=== PATIENT | female | born 1945 | race Caucasian/White ===

== ENCOUNTER 2016-11-30 13:54 | Inpatient (IN) | payer OTHER ==
--- NOTE | ~2016-11-30 | HP ---
History And Physical [place] [address] [facility] [place]. [address] NAME: ERNESTINE CHANCE : 43 STATUS : ADM IN [facility]#: [id number] AGE: 71 ADM/REG DATE : 11/30/16 MR#: [id number] REPORT SERV DATE: 11/30/16 DICTATED BY: EZEQUIEL JAIMES DATE: 11/30/16 REPORT STATUS : Draft TRANSCRIBED BY: MODL DATE: 11/30/16 DATE OF ADMISSION: 11/30/2016 CHIEF COMPLAINT: Diverticulitis. HISTORY OF PRESENT ILLNESS: The patient is a 71-year-old female, she has a past medical history of hypertension, hyperlipidemia, diabetes, and postmenopausal hormone replacement. She presents today as a referral from her cloth bleaching range tender. The patient states she initially started feeling better on 11/08. She was scheduled for a colonoscopy at that time; however, during the prep, she had a lot of diarrhea, abdominal pain, bloating, and cannot adequately prep. She made an appointment with her cloth bleaching range tender at that time. The colonoscopy was postponed, but she was sent for a CT. After the patient had left, she had a tentative diagnosis of diverticulitis and was placed on Cipro and Flagyl p.o. She did an outpatient CT at [facility], there was a question of a possible early abscess and contained perforation on that scan. The patient also had lab and she had a normal BMP, and she had a white count of 8. It was felt she could be managed conservatively, so she continued her home antibiotics. Over the proceeding 48 hours, the patient had some recurrent nausea. She has had no documented fever. She had continuation of her pain, not necessarily worse, it was concerning that she might be getting worse despite treatment so with her CT findings she was asked to present here for admission and evaluation. Currently, she is not in any distress. Otherwise, she is without complaints. PAST MEDICAL HISTORY: As covered above. PAST SURGICAL HISTORY: She had cholecystectomy, partial hysterectomy, and a bladder tack. CURRENT MEDICATIONS: Her home medicine list is pending. ALLERGIES: SHE REPORTS NO KNOWN DRUG ALLERGIES. FAMILY HISTORY: Father had diabetes and possibly CHF. Mother had emphysema and CHF. SOCIAL HISTORY: She smokes approximately 3 cigarettes a day. No EtOH. REVIEW OF SYSTEMS: HEENT: No headache or dizziness. CARDIOVASCULAR: No chest pain or palpitations. PULMONARY: No cough or shortness of breath. GI: She had nausea and dry heaves. Today, she had 2 loose bowel movements, nothing reported as bloody. She is having left lower and very lower and upper pelvic pain, it was somewhat worse with defecation today. No swelling or edema. Otherwise, her 14-point review of systems is negative. PHYSICAL EXAMINATION: VITAL SIGNS: BP 144/64, temperature 98.6, pulse 90, respirations 20, sat 96%. GENERAL: She is awake, alert, and oriented. History And Physical [address] [address] NAME: ERNESTINE CHANCE : 43 STATUS : ADM IN [facility]#: [id number] AGE: 71 ADM/REG DATE : 11/30/16 MR#: [id number] REPORT SERV DATE: 11/30/16 DICTATED BY: EZEQUIEL JAIMES DATE: 11/30/16 REPORT STATUS : Draft TRANSCRIBED BY: NICOLASA DATE: 11/30/16 HEENT: Normocephalic, atraumatic. Sclerae nonicteric. NECK: Supple. HEART: Regular rate and rhythm without significant murmurs, gallops, or rubs. LUNGS: Clear to auscultation without rhonchi, rales, or wheezes. ABDOMEN: She has positive bowel sounds. Nondistended. She tolerates deep palpation on the left lower quadrant. No significant bladder tenderness. No guarding or rebound. EXTREMITIES: No clubbing, cyanosis, or edema. NEUROLOGIC: Grossly nonfocal. LABORATORY DATA: Reviewed her lab work and CT is forwarded from her cloth bleaching range tender. ASSESSMENT: Diverticulitis with CT showing possible contained perforation or an early abscess on Sunday. PLAN: 1. The patient has been admitted. 2. We will continue IV antibiotics. 3. Full repeat lab including a CBC, procalcitonin, lactate, and electrolytes. 4. We will reorder CT scan here with contrast. 5. Sliding scale insulin, if needed. 6. Surgical consult, if she has continued or worsening symptoms of perforation or abscess, but at this point her database is incomplete. STELLA/NICOLASA Ezequiel Jaimes M.D. / [id number] CC: Mani Hsu M.D.
--- NOTE | ~2016-11-30 | DS ---
Discharge Summary [place] [address] [place]. [address] NAME: ERNESTINE CHANCE : 43 STATUS : ADM IN [facility]#: [id number] AGE: 71 ADM/REG DATE : 11/30/16 MR#: [id number] REPORT SERV DATE: 12/04/16 DICTATED BY: EZEQUIEL JAIMES DATE: 12/04/16 REPORT STATUS : Draft TRANSCRIBED BY: MODL DATE: 12/04/16 ADMISSION DATE: 11/30/2016 DISCHARGE DATE: 12/04/2016 FINAL HOSPITAL DIAGNOSES: 1. Diverticulitis. 2. Diabetes. 3. Hypertension. 4. Hyperlipidemia. 5. Urinary tract infection. CONSULTATIONS: Surgery, Dr. Saavedra. PROCEDURES: CT scan of abdomen and pelvis on 11/30/2016, showing persistent acute diverticulitis similar to prior exam, stable, contained perforation with cluster of small gas bubble surrounded by soft tissue attenuation located cranial to the midportion of the sigmoid colon. Stable 12 x 17 mm rim enhancing hypodense collection left wall of the distal sigmoid colon consistent with small stable abscess, stable changes of cholecystectomy and hysterectomy. Multiple chronic areas of renal cortical scarring, left kidney and some bilateral renal cysts. CURRENT PHYSICAL FINDINGS AND HISTORY OF PRESENT ILLNESS: Please see dictated H and P by myself. In brief, the patient is a 71-year-old female, who is being treated outpatient by a senior it specialist. Diverticulitis did not seem to be progressing as expected. Admission was requested for further evaluation and treatment. Vital signs at time of admission, BP was 144/64, temperature was 98.6. Her T-max here was 100.5 on 12/02/2016. Pulse has been consistent in the 70s to 80s. LABORATORY DATA: Initial procalcitonin was less than 0.05. Initial BMP was unremarkable. Amylase was 35, lipase was 73, lactate was 0.8. Initial white count was 10.9, subsequent were 10.5, and 6.6 today. Hemoglobin has been 9.5 to 10 on average. Urinalysis showed rare bacteria. Subsequent urinary culture grew E coli, which was Macrobid-sensitive. It was not quinolone-sensitive. Stool was checked for C difficile and negative. Blood cultures are negative at two days. HOSPITAL COURSE: The patient was admitted. Outside CT was received and reviewed. Followup CT was done here with findings noted and Surgery consulted. She was initially continued on her home medications, although transition to IV. Her home antihypertensive and antidiabetics were held, and she was placed on sliding scale. IV fluids were initiated. Melatonin was given for sleep. Surgery did not recommend repeat CT or surgery or abscess aspiration. She was then placed on DVT prophylaxis because of her low-grade fevers. Other etiologies including C difficile and UTI were checked for and noted above. The patient was placed on Macrobid and Flagyl. She has continued to do well. She was felt stable for discharge with outpatient followup with Dr. Saavedra. DISCHARGE MEDICATIONS: Prescriptions were written for Pyridium t.i.d. 200 mg; Lortab 5/325, Discharge Summary [address] [address] NAME: ERNESTINE CHANCE : 43 STATUS : ADM IN [facility]#: [id number] AGE: 71 ADM/REG DATE : 11/30/16 MR#: [id number] REPORT SERV DATE: 12/04/16 DICTATED BY: EZEQUIEL JAIMES DATE: 12/04/16 REPORT STATUS : Draft TRANSCRIBED BY: MODL DATE: 12/04/16 #20, q.6; Macrobid 100 b.i.d. for 10 days; and Flagyl 500 t.i.d. for 10 days. She will continue Nexium 40, coenzyme Q10, aspirin 81, Benicar 20, Crestor 40, Januvia 100, and Premarin 0.625. DICTATED BY: Ezequiel Jaimes M.D. TLF/NICOLASA Ezequiel Jaimes M.D. / [id number] CC: Mani Hsu M.D.
[~2016-11-30 13:54] MED LIST: ASAB PO; BENICAR20 PO; CO Q-10100 MG PO; CRESTOR40 MG PO; JANUVIA100 MG PO; NEXIUM40 PO; PREM625 PO
[2016-11-30 16:50] LABS: BASOPHILS 0.1 %; BASOPHILS ABSOLUTE 0.01 10/3/uL (0.0-0.16); EOSINOPHILS 0.3 %; EOSINOPHILS ABSOLUTE 0.03 10/3/uL (0.0-0.53); HEMATOCRIT 32.4 % (36.0-48.0); HEMOGLOBIN 10.8 g/dL (12.0-16.0); IMMATURE GRANULOCYTES 0.1 %; IMMATURE GRANULOCYTES ABSOLUTE 0.01 10/3/uL (0.0-0.11); LYMPHOCYTES 11.5 %; LYMPHOCYTES ABSOLUTE 1.26 10/3/uL (0.67-4.30); MEAN CORPUS HGB CONC 33.3 g/dL (32.0-36.0); MEAN CORPUSCULAR HEMOGLOB 27.3 pg (26.0-34.0); MEAN PLATELET VOLUME 9.2 fL (9.2-13.0); MONOCYTES 6.9 %; MONOCYTES ABSOLUTE 0.75 10/3/uL (0.21-1.20); NEUTROPHILS 81.1 %; NEUTROPHILS ABSOLUTE 8.86 10/3/uL (2.02-8.40); PLATELET COUNT 398 10/3/uL (150-400); RBC DISTRIBUTION WIDTH 14.2 % (12.0-16.0); RED CELL COUNT 3.95 10/6/uL (4.0-5.6); WHITE BLOOD CELLS 10.9 10/3/uL (4.5-10.5)
[2016-11-30 16:53] LABS: MANUAL DIFF NO %
[2016-11-30 16:58] LABS: INTERNATIONAL NORMAL RATI 1.1 UNITS (-); PARTIAL THROMBO TIME 31.3 SEC (22.5-37.2); PROTIME (NOT ORD) 14.1 SEC (12.0-14.5)
[2016-11-30 17:04] LABS: A/G RATIO 0.7 (0.7-1.9); ALBUMIN 2.9 G/DL (3.5-5.0); ALKALINE PHOSPHATASE 106 U/L (45-117); BUN (BLOOD UREA NITROGEN) 14 MG/DL (6-23); CHLORIDE, SERUM 107 MMOL/L (96-112); CO2 (CARBON DIOXIDE) 25 MMOL/L (24-34); CREATININE 0.74 MG/DL (0.55-1.02); GFR AFRICAN AMERICAN 93 ML/MIN (>=60); GFR NON AFRICAN AMERICAN 80 ML/MIN (>=60); GLOBULIN 4.4 G/DL (2.5-4.1); GLUCOSE, SERUM 98 MG/DL (60-99); POTASSIUM, SERUM 3.5 MMOL/L (3.5-5.3); SGOT(AST) 14 U/L (5-40); SGPT(ALT) 15 U/L (5-65); SODIUM, SERUM 141 MMOL/L (135-148); TOTAL BILIRUBIN 0.3 MG/DL (0-1.2); TOTAL PROTEIN 7.3 G/DL (6.0-8.5)
[2016-11-30 17:53] LABS: PROCALCITONIN <0.05 ng/mL (<0.5)
[2016-11-30 20:14] LABS: ASCORBIC ACID (UR NOT ORDER) NEG (NEG); BILIRUBIN, URINE NEGATIVE (NEG); KETONE, URINE 20 MG/DL (NEG); LEUKOCYTE ESTERASE(NOT OR SMALL (NEG); WBC (NOT ORDERED) (RFLEX) 8 (0-5)
[2016-12-02 06:53] LABS: BASOPHILS 0.1 %; BASOPHILS ABSOLUTE 0.01 10/3/uL (0.0-0.16); EOSINOPHILS 0.1 %; EOSINOPHILS ABSOLUTE 0.01 10/3/uL (0.0-0.53); HEMATOCRIT 31.7 % (36.0-48.0); HEMOGLOBIN 10.7 g/dL (12.0-16.0); IMMATURE GRANULOCYTES 0.3 %; IMMATURE GRANULOCYTES ABSOLUTE 0.03 10/3/uL (0.0-0.11); LYMPHOCYTES 16.4 %; LYMPHOCYTES ABSOLUTE 1.72 10/3/uL (0.67-4.30); MEAN CORPUS HGB CONC 33.8 g/dL (32.0-36.0); MEAN CORPUSCULAR HEMOGLOB 27.4 pg (26.0-34.0); MEAN CORPUSCULAR VOLUME 81.1 fL (80-100); MEAN PLATELET VOLUME 9.1 fL (9.2-13.0); MONOCYTES 10.2 %; MONOCYTES ABSOLUTE 1.07 10/3/uL (0.21-1.20); NEUTROPHILS 72.9 %; NEUTROPHILS ABSOLUTE 7.63 10/3/uL (2.02-8.40); PLATELET COUNT 373 10/3/uL (150-400); RBC DISTRIBUTION WIDTH 14.4 % (12.0-16.0); RED CELL COUNT 3.91 10/6/uL (4.0-5.6); WHITE BLOOD CELLS 10.5 10/3/uL (4.5-10.5)
[2016-12-02 06:54] LABS: MANUAL DIFF NO %
[2016-12-04 06:51] LABS: BASOPHILS 0 %; EOSINOPHILS 0.8 %; EOSINOPHILS ABSOLUTE 0.05 10/3/uL (0.0-0.53); HEMATOCRIT 27.9 % (36.0-48.0); HEMOGLOBIN 9.4 g/dL (12.0-16.0); IMMATURE GRANULOCYTES 0.3 %; IMMATURE GRANULOCYTES ABSOLUTE 0.02 10/3/uL (0.0-0.11); LYMPHOCYTES 21.8 %; LYMPHOCYTES ABSOLUTE 1.43 10/3/uL (0.67-4.30); MANUAL DIFF NO %; MEAN CORPUS HGB CONC 33.7 g/dL (32.0-36.0); MEAN CORPUSCULAR HEMOGLOB 27.4 pg (26.0-34.0); MEAN CORPUSCULAR VOLUME 81.3 fL (80-100); MEAN PLATELET VOLUME 8.9 fL (9.2-13.0); MONOCYTES 11.7 %; MONOCYTES ABSOLUTE 0.77 10/3/uL (0.21-1.20); NEUTROPHILS 65.4 %; PLATELET COUNT 309 10/3/uL (150-400); RBC DISTRIBUTION WIDTH 14.3 % (12.0-16.0); RED CELL COUNT 3.43 10/6/uL (4.0-5.6); WHITE BLOOD CELLS 6.6 10/3/uL (4.5-10.5)
[2016-12-04] MEDS ORDERED: FLAG500TAB PO (13:21)
[2016-12-04] MEDS ORDERED: MACROBID PO (13:21)
[2016-12-04] MEDS ORDERED: PYR200 PO (13:21)
[2016-12-04] MEDS ORDERED: NORCO1 TA1 PO (13:22)
== END 2016-12-04 17:43 | disposition home or self-care (01) | DRG 392 ==
LOC: 4SO 13:54
PROVIDERS: Internal Medicine
DX: K57.20 Diverticulitis of large intestine with perforation and abscess without bleeding (principal); E11.9 Type 2 diabetes mellitus without complications; N39.0 Urinary tract infection, site not specified; I10 Essential (primary) hypertension; B96.20 Unspecified Escherichia coli [E. coli] as the cause of diseases classified elsewhere; F17.210 Nicotine dependence, cigarettes, uncomplicated; E78.5 Hyperlipidemia, unspecified; Z79.890 Hormone replacement therapy
CPT/HCPCS: 74177; 80053; 81001; 82150; 82962; 83605; 83690; 84145; 85025; 85610; 85730; 87040; 87077; 87086; 87186; 87493; 87493-59; A9270-GY; J1956; Q9967

== ENCOUNTER 2016-12-15 13:23 | Inpatient (IN) | payer OTHER ==
--- NOTE | ~2016-12-15 | CN ---
Consultation Report [facility] [address] [place]. [address] NAME: ERNESTINE CHANCE : 43 STATUS : ADM IN PAT#: [id number] AGE: 71 ADM/REG DATE : 12/15/16 MR#: [id number] REPORT SERV DATE: 12/16/16 DICTATED BY: EZEQUIEL JAIMES DATE: 12/16/16 REPORT STATUS : Draft TRANSCRIBED BY: MODL DATE: 12/16/16 CONSULTATION DATE OF CONSULTATION: 12/16/2016 REASON FOR CONSULTATION: Medical management, diabetes, hypertension. HISTORY OF PRESENT ILLNESS: The patient is a 71-year-old female, known to me from recent hospitalization 11/30/2016 to 12/04/2016. She was hospitalized at that time for diverticulitis, failing outpatient treatment, was discharged from here with p.o. medication, treated medically nonsurgically. The patient states that since going home, she was able to complete all her antibiotics. She states she had continued problems with eating, not really having much of an appetite, having fairly significant nausea, some intermittent emesis. She did not take her temperature, so was not certain if she was having fevers during that time on p.o. antibiotics, but she did complete them, symptoms were really not improving. She contacted the surgical services and was scheduled for an outpatient CT, however, she began having diarrhea, recurrent, so she presented back to the hospital. She was febrile at that time. Repeat CT scan showed continued diverticulitis. She is currently on IV antibiotics with plans for followup CT and discussion of possible surgical intervention again if needed. She is otherwise without complaints today. PAST MEDICAL HISTORY: As covered above. PAST SURGICAL HISTORY: Cholecystectomy, partial hysterectomy, and a bladder tack. HOME MEDICATIONS: Aspirin 81, coenzyme Q 10, Nexium 40, Premarin 0.625, Benicar 20, Crestor 40, Januvia 100, Ambien 10. ALLERGIES: NONE. FAMILY HISTORY: Diabetes, CHF. Mother had emphysema and CHF, the first history with her father. SOCIAL HISTORY: Three cigarettes a day. No EtOH. REVIEW OF SYSTEMS: She has not had chest pain, palpitations, shortness of breath, or cough. She has not had dysuria. She has had abdominal pain, nausea, with some emesis, diarrhea without bloody diarrhea. Otherwise, 10-point review of systems is negative. PHYSICAL EXAMINATION: VITAL SIGNS: BP is 128/60, temp is 101, she has had a T-max of 103, pulse is 95, respirations 18, sat 92%. GENERAL: She is awake, alert, and oriented. Consultation Report [place] [address] [place]. [address] NAME: ERNESTINE CHANCE : 43 STATUS : ADM IN PAT#: [id number] AGE: 71 ADM/REG DATE : 12/15/16 MR#: [id number] REPORT SERV DATE: 12/16/16 DICTATED BY: EZEQUIEL JAIMES DATE: 12/16/16 REPORT STATUS : Draft TRANSCRIBED BY: MODShreya DATE: 12/16/16 HEENT: Normocephalic, atraumatic. Sclerae nonicteric. NECK: Supple. HEART: Regular rate and rhythm. LUNGS: Clear to auscultation. ABDOMEN: She does have some tenderness to palpation. EXTREMITIES: Without edema. NEUROLOGIC: Nonfocal. LABORATORY DATA: Initial potassium was 3.4, corrected to 3.7, chloride has been 113 on two checks. Creatinine was 0.65 and 0.71 respectively. Lipase was 92. AST, ALT were 19 and 15. White count on discharge, on 09/06/2016 was 6.6, subsequent were 14.4 and 13.5 yesterday and today. Hemoglobin has been 9.5 to 10.5. Urinalysis was unremarkable. Blood cultures have been requested, but are pending. Stool for C. diff is negative. CT scan of the abdomen and pelvis with IV contrast showed similar appearance of the distal sigmoid colon and rectum to the examination of 11/2016, multiple gas collections associated with bowel wall thickening and surrounding edema, may be due to multiple diverticula, abscess cannot be excluded, but are not obvious. ASSESSMENT: Medical management, hypertension, diabetes in a 71-year-old female with recurrent diverticulitis. PLAN: We will continue sliding scale management. Blood pressure medicines as appropriate. Adjust patient's p.o. status and ultimate decisions on surgical intervention. We will continue to follow. Thank you for the consultation. STELLA/NICOLASA Ezequiel Jaimes M.D. / [id number] CC: Mani Neff M.D.
--- NOTE | ~2016-12-15 | CN ---
Consultation Report [facility] [address] [place]. [address] NAME: ERNESTINE CHANCE : 43 STATUS : ADM IN PAT#: [id number] AGE: 71 ADM/REG DATE : 12/15/16 MR#: [id number] REPORT SERV DATE: 12/18/16 DICTATED BY: JUANITO BELTRE DATE: 12/17/16 REPORT STATUS : Draft TRANSCRIBED BY: MODL DATE: 12/17/16 INFECTIOUS DISEASE CONSULT DATE OF CONSULTATION: 12/17/2016 REASON FOR REFERRAL: Evaluation and treatment of recalcitrant diverticulitis. HISTORY OF PRESENT ILLNESS: The patient is a 71-year-old female with a history of hypertension, hyperlipidemia, and diabetes mellitus. She developed abdominal pain in late October on imaging and was felt to have diverticulitis and was begun on oral antibiotics to manage that since there was no indication for surgery at that point. She was given Cipro and Flagyl and did improve but then worsened again later in November and was admitted here on 11/30/2016, and a CT scan was done, evaluated by Surgery, that CT scan showed the diverticulitis similar to prior exams. There was a concern for possible small perforation with a cluster of small gas bubble surrounded by soft tissue attenuation, but it is not felt that surgery was indicated at that point, she was continued on antibiotics, discharged on quinolone and Flagyl again but has continued to worsen with increasing pain, so readmitted yesterday. CT was repeated and it shows a similar picture. At this time, she has been started on Zosyn. She has had temperatures as high as 103 shortly after admission that does seem to be decreasing as far as the height of the spike with 101.3 the most recent spike, white blood cell count has improved, but she continues to complain of a great deal of pain. Surgery is following. PAST MEDICAL HISTORY: Otherwise unremarkable. MEDICATIONS: As mentioned above. ALLERGIES: NO KNOWN ANTIMICROBIAL ALLERGIES. SOCIAL HISTORY: She is apparently a smoker just a few cigarettes a day. No history of alcohol or substance abuse. FAMILY HISTORY: Noncontributory. PHYSICAL EXAMINATION: GENERAL: She is uncomfortable due to pain, which tends to be provoked whenever she has a bowel movements, which she just had, which is a very small amount of nonbloody loose stool. VITAL SIGNS: Her temperature had just spiked to 101.3 earlier this morning and is 100.6 at present with a pulse of 102, respirations 16, blood pressure 120/60, weight 74 kg. HEENT: Sclerae clear. No oral lesions. NECK: Supple. LUNGS: Clear. HEART: Regular rate and rhythm. ABDOMEN: Soft. Mildly tender with palpation. Positive bowel sounds are heard. EXTREMITIES: Without clubbing, cyanosis, or edema. Consultation Report [place] [address] [place]. [address] NAME: ERNESTINE CHANCE : 43 STATUS : ADM IN [facility]#: [id number] AGE: 71 ADM/REG DATE : 12/15/16 MR#: [id number] REPORT SERV DATE: 12/18/16 DICTATED BY: JUANITO BELTRE DATE: 12/17/16 REPORT STATUS : Draft TRANSCRIBED BY: NICOLASA DATE: 12/17/16 SKIN: No rashes noted. LABORATORY DATA: White count was 14.4 when she came in and it had been 6.6 when she was discharged on 12/04/2016, today it is 11 with a hematocrit 27.5, platelets 348, unremarkable differential. BUN and creatinine 7 and 0.62. Her liver function tests within normal limits. Blood cultures taken at admission remain negative. IMPRESSION: Recalcitrant diverticulitis that likely will need surgical resection for cure. At this point, I doubt anything that is resistant to Zosyn but it is certainly possible she has organisms by now that are resistant to fluoroquinolones. RECOMMENDATION: 1. Agree with the Zosyn. 2. Would defer to Surgery on whether or not she is to go to the operating room. 3. Finally, I will follow the patient with you. I appreciate very much your consulting on this patient. ENIO/NICOLASA Juanito Beltre M.D. / [id number] CC: Mani Neff M.D.
--- NOTE | ~2016-12-15 | DS ---
Discharge Summary [place] [address] [address] [place]. [address] NAME: ERNESTINE CHANCE : 43 STATUS : DIS IN PAT#: [id number] AGE: 71 ADM/REG DATE : 12/15/16 MR#: [id number] REPORT SERV DATE: 01/11/17 DICTATED BY: SHARRON WHITAKER JR. DATE: 01/10/17 REPORT STATUS : Draft TRANSCRIBED BY: MODShreya DATE: 01/10/17 Data Collection from hospitalization DISCHARGE DIAGNOSIS(ES): 1. Complicated diverticulitis. 2. Hypertension. 3. Type 2 diabetes mellitus. 4. Atrial fibrillation. 5. Anemia. 6. Tobacco use - quit one month prior to this admission. CONSULTATIONS: Rivas García M.D., Joel Strange M.D., Ruddy Beltre M.D., and Jose Neves M.D. PROCEDURES PERFORMED: 1. Sigmoid colectomy with end-colostomy, Raheem pouch creation, left salpingo- oophorectomy, right salpingectomy, 12/21/2016. 2. CT scan of the abdomen and pelvis with contrast, 12/15/2016. PATHOLOGY: Submitted as "sigmoid colon and left ovary" en bloc resection -acute and chronic diverticulitis with rupture, abscess formation, peridiverticular tissue, and inflamed proximal resection margin, suppurative serositis closely approaches distal margins, benign left ovary with cortical stromal prominent/hyperplasia, unremarkable left fallopian tube, right fallopian tube, resected portion - focal stromal edema. MEDICATIONS: Eliquis 5 mg twice a day, aspirin 81 mg every 48 hours, CoQ10 of 100 mg daily, Nexium 40 mg every morning, Premarin 0.625 mg every morning, flecainide 50 mg every 12 hours, Lopressor 25 mg twice a day, Benicar 20 mg every morning, Percocet 5/325 one to two tablets every six hours as needed, Crestor 40 mg at bedtime, Januvia 100 mg every morning, and Ambien 10 mg at bedtime as needed. CONDITION AT DISCHARGE: Stable. DISPOSITION: The patient was discharged home to be followed by home health care on a soft diet with activities as instructed. She would follow up with Dr. Jose Neves, 02/06/2017, and with Dr. Sharron Whitaker, 01/05/2017. HOSPITAL COURSE: This is a 71-year-old female who had recently been hospitalized from 11/30/2016 until 12/04/2016. She had been hospitalized at bedtime with diverticulitis failing outpatient treatment and was discharged from here with oral medication treated medically, nonsurgically. The patient said that since going home she was able to complete all of her antibiotics. She said that she had continued to have problems with eating, not really having much of an appetite. She had fairly significant nausea and some intermittent emesis. She did not take her temperature, so it was not certain if she was having fevers during that time on oral antibiotics, but she did complete them and her symptoms were really not improving. She contacted Surgical Services and was scheduled to undergo an outpatient CT; however, she began to have diarrhea, which was recurrent, and she presented back to the hospital. She was febrile. Repeat CT scan showed continued diverticulitis. She was Discharge Summary [address] [address] NAME: ERNESTINE CHANCE : 43 STATUS : DIS IN PAT#: [id number] AGE: 71 ADM/REG DATE : 12/15/16 MR#: [id number] REPORT SERV DATE: 01/11/17 DICTATED BY: SHARRON WHITAKER JR. DATE: 01/10/17 REPORT STATUS : Draft TRANSCRIBED BY: NICOLASA DATE: 01/10/17 admitted to the hospital at this time for further evaluation and treatment. Upon admission, she was seen by Dr. Rivas García. She had been started on IV antibiotics. It was felt that she may possibly need surgical intervention, even asked to see her regarding medical management. The patient has hypertension and diabetes as well as recurrent diverticulitis. Sliding scale management was going to be continued. Blood pressure medications would be given as appropriate. She was also seen by Dr. Joel Strange regarding diverticulitis. Her last colonoscopy had been performed five years ago. She has a history of colon polyps. She has been struggling with diverticulitis over the past few weeks. She had received quinolone, Macrodantin, and Flagyl without significant improvement. White blood cell count was 13.5. Liver tests were normal. Urinalysis was negative. CT scan had shown diverticulitis, lower sigmoid and upper rectum. Intravenous Zosyn was continued. Glucerna was added. On the , she was seen by Dr. Ruddy Beltre for evaluation and treatment of recalcitrant diverticulitis. She had been started on Zosyn. She had temperatures as high as 103 shortly after admission. White blood cell count had improved. She continued to complain of a great deal of pain. Her white blood cell count was 14.4. Her liver function tests were within normal limits. It was felt that the recalcitrant diverticulitis would likely need surgical resection for cure. She agreed with the Zosyn. There was still no improvement in her pain. On the , she continued to have a fever. Blood cultures were negative. There was no change in her symptoms. Blood cultures remained negative. She was seen by Dr. Jose Neves regarding abdominal pain and atrial fibrillation seen in preop holding. In preop holding, she had an EKG which revealed atrial fibrillation with rapid ventricular response. The patient said she had not had any palpitations, chest pain, shortness of breath, or syncope. She had no swelling. She still has some light abdominal pain. EKG revealed atrial fibrillation with rapid ventricular response, otherwise, normal tracing. Blood pressure was currently under good control. IV diltiazem bolus and infusion was started for rate control. It was felt better to delay surgery for approximately 24 hours so that she may be more stable hemodynamically prior to the procedure. She was transferred to a telemetry bed. We would consider anticoagulation postoperatively if this was okay with Dr. Whitaker. Echocardiogram was performed. There was normal left ventricular systolic function. Left ventricular ejection fraction was 55%. There was normal right ventricular function and mild to moderate mitral regurgitation, mild tricuspid regurgitation, and moderate left atrial enlargement. On 12/19/2016, IV antibiotics and IV fluids were continued. Diltiazem was being given. She still had some lower abdominal pain. White count was 5.4. Clear liquids were being given. Plans were being made to proceed with surgery. Diltiazem was changed to metoprolol. On 12/21/2016, she felt about the same. She was afebrile. She did have some low back pain. She was taken to the operating room where she underwent the above-mentioned procedure. She tolerated this well. There were no complications. On postop day #1, she did complain of pain. Her abdomen was soft. The [employer] TRAV[employer] COUNSELOR was increased. Sips of liquids were started. Antibiotics were continued. Blood pressure was under good control. On 12/23/2016, O2 saturation was excellent on room air. White count was 11.9. She was beginning to ambulate. She complained of nausea and some vomiting and reflux. Calderon catheter was removed. Micafungin was added. Flecainide and metoprolol were continued. The AUT[employer] TRAV[employer] COUNSELOR was discontinued. Her diet was advanced. Hemoglobin was stable. On 12/27/2016, she Discharge Summary [address] [address] NAME: ERNESTINE CHANCE : 43 STATUS : DIS IN PAT#: [id number] AGE: 71 ADM/REG DATE : 12/15/16 MR#: [id number] REPORT SERV DATE: 01/11/17 DICTATED BY: SHARRON WHITAKER JR. DATE: 01/10/17 REPORT STATUS : Draft TRANSCRIBED BY: NICOLASA DATE: 01/10/17 did have some complaints regarding the colostomy bag. She was in a sinus rhythm. Metoprolol and flecainide were continued. Eliquis was being given. She had no chest pain or palpitations. She did have some nausea. Discharge planning was performed. Micafungin was stopped. The ostomy was healing. She said she was feeling better. On 12/29/2016, she felt a lot better. She seemed much stronger. Her nausea had decreased. She was eating well. Her lungs were clear. Discharge instructions were given. Due to her improved and stable condition, she was discharged home to be followed by home health care with the above- stated instructions. Information collected by: Andreina Esposito I submit the above information as my discharge summary. TG/MODL Sharron Whitaker Jr., M.D. / [id number] CC: Mani Mei Jr., M.D. Mark Anderson, M.D. Chad Charapata, M.D. Brian Negus, M.D.
--- NOTE | ~2016-12-15 | OP ---
Record Of Operation [facility] [address] [place]. [address] NAME: ERNESTINE CHANCE : 41 STATUS : ADM IN PAT#: [id number] AGE: 71 ADM/REG DATE : 12/15/16 MR#: [id number] REPORT SERV DATE: 12/22/16 DICTATED BY: SHARRON WHITAKER JR. DATE: 12/21/16 REPORT STATUS : Draft TRANSCRIBED BY: MODL DATE: 12/21/16 DATE OF PROCEDURE: 12/21/2016 SURGEON: Sharron Whitaker M.D. TRENCH PIPE LAYER HELPER: Edie eGorge. PROCEDURE: Sigmoid colectomy with end colostomy, Raheem pouch creation, left salpingo- oophorectomy, right salpingectomy. PREOPERATIVE DIAGNOSIS: Complicated diverticulitis. POSTOPERATIVE DIAGNOSIS: Complicated diverticulitis. ANESTHESIA: General. INDICATIONS: This patient was seen for complex diverticulitis, which was refractory to medical treatment with IV and p.o. antibiotics. Imaging had showed inflammatory change with possible contained perforation. Symptoms were consistent with partial obstruction as well. Operation was indicated. FINDINGS: Proctoscopy was performed, which showed what appears to be an extrinsic transit mass which precluded passage of the scope passed approximately 10 cm. Intraoperatively, there was a mass filling the pelvis which appeared to be inflammatory. There was an involvement of a portion of the ileum but this was able to be with only requirement for serosal repair. The left tube and ovary were attached to the mass as was the right tube. Left ureter was identified and preserved and the right ureter was not dissected. There was contained perforation in the pelvis posteriorly with some seropurulent material obtained for culture. This was freed up and removed. The rectal stump was viable, this was not felt to be appropriate to do anastomosis in view of the contaminated field in which anastomosis would lay. Therefore, an end colostomy was created with Raheem pouch. DESCRIPTION OF PROCEDURE: With adequate general anesthesia, the patient was placed in the lithotomy position. The proctoscope was introduced with the above-noted findings and the rectum was irrigated with saline. Then, a midline incision was made. The dissection was carried down sharply through the subcutaneous tissues. The fascia and peritoneum were opened. The peritoneal cavity was entered and the above-noted findings were encountered. The colon was divided by dividing the lateral peritoneal attachments including the left colon. This was carried down to the pelvis were combination of sharp and blunt dissection mobilized the mass. Peritoneum was scored on the right side as well. The left tube and ovary were removed with the specimen dividing the gonadal vessels with the LigaSure device. The patient has had previous hysterectomy. Then, a site was selected for revision of the colon and proximal to that KALEE 75. The mesentery was taken with the EnSeal device and then the inferior mesenteric artery with clamps and ligatures of silk. Then, presacral mobilization undertaken. There was perforation into the presacral space. Fluid here was obtained for culture and then the distal rectum was identified. This was then Record Of Operation [address] [place]. [address] NAME: ERNESTINE CHANCE : 41 STATUS : ADM IN [facility]#: [id number] AGE: 71 ADM/REG DATE : 12/15/16 MR#: [id number] REPORT SERV DATE: 12/22/16 DICTATED BY: SHARRON WHITAKER JR. DATE: 12/21/16 REPORT STATUS : Draft TRANSCRIBED BY: NICOLASA DATE: 12/21/16 divided sharply and the specimen was removed consisting of the involved rectosigmoid mesentery. Then, the rectal stump was closed with a running 2-0 Prolene suture. The abdomen was irrigated with saline. Hemostasis was assured. A 19 Jonn drain was left in the pelvis and brought out on the right side, where it was secured with nylon suture. The right tube was removed again with the EnSeal device. Additional mobilization left colon facilitated the colostomy, which was done in the left abdomen through the marked site having removed a disc of skin, subcutaneous tissue, and bring the ostomy through the cruciate incision in the fascia and the rectus muscle. After assurance of hemostasis, the midline incision was closed with running 0 PDS for the fascial layer, subcutaneous with Vicryl and daksha for the skin. Negative pressure dressing was placed. The ostomy was was matured by staple line and securing the mucosal edges to the dermis suture of 3-0 Monocryl in inverted [place] fashion. An ostomy appliance was applied. The patient left the operating room in satisfactory condition. ESTIMATED BLOOD LOSS: 100 mL. JG/LINDAL Sharron Whitaker Jr., M.D. / [id number] CC: Mani Mei Jr., M.D.
--- NOTE | ~2016-12-15 | CN ---
Consultation Report [place] [id number] [facility] [place]. [address] NAME: ERNESTINE CHANCE : 41 STATUS : ADM IN [facility]#: [id number] AGE: 71 ADM/REG DATE : 12/15/16 MR#: [id number] REPORT SERV DATE: 12/16/16 DICTATED BY: JOEL STRANGE DATE: 12/16/16 REPORT STATUS : Draft TRANSCRIBED BY: MODL DATE: 12/16/16 GI CONSULT DATE OF CONSULTATION: 12/16/2016 REASON FOR CONSULTATION: Regarding diverticulitis. HISTORY OF PRESENT ILLNESS: This is a pleasant 71-year-old woman who presented to the hospital with left lower quadrant pain. She has been struggling with diverticulitis over the past few weeks. She has received quinolone, Macrodantin, and Flagyl along the way without significant improvement. She continues with left lower quadrant pain, constipation, but no melena or hematochezia. She has no vomiting or fever. Last colonoscopy was done five years ago by Dr. Schmidt. The patient has a history of colon polyps. ALLERGIES: NONE. MEDICATIONS: Include aspirin, coenzyme Q10, Nexium, Premarin, Benicar, Crestor, Januvia, and Ambien. MEDICAL HISTORY: Remarkable for diverticulitis, hypertension, hyperlipidemia, and diabetes. SURGICAL HISTORY: Cholecystectomy, partial hysterectomy, and bladder tack. FAMILY HISTORY: Negative for GI malignancy. SOCIAL HISTORY: She does not use alcohol or tobacco significantly. REVIEW OF SYSTEMS: A complete review of systems was obtained and negative except that noted in the history of present illness. PHYSICAL EXAMINATION: VITAL SIGNS: T-max 103, temperature current 100.2; pulse 89; respirations 18; and blood pressure 107/52. HEAD AND NECK: Sclerae anicteric. Neck is supple without lymphadenopathy. Pharynx is pink without exudate. LUNGS: Clear to auscultation bilaterally. HEART: Regular rate and rhythm. S1 and S2 heard without rubs or gallops. ABDOMEN: Normal bowel sounds. Belly is soft and nondistended. There is mild left-sided tenderness without rebound or guarding. No hepatosplenomegaly is detected. EXTREMITIES: No pedal edema or rash. NEUROLOGIC: Alert and oriented without focal deficit. MUSCULOSKELETAL: Nontender. Consultation Report [address] [place]. [address] NAME: ERNESTINE CHANCE : 41 STATUS : ADM IN PAT#: [id number] AGE: 71 ADM/REG DATE : 12/15/16 MR#: [id number] REPORT SERV DATE: 12/16/16 DICTATED BY: JOEL STRANGE DATE: 12/16/16 REPORT STATUS : Draft TRANSCRIBED BY: MODL DATE: 12/16/16 DATA: White blood cell count 13.5, hematocrit 30.1, MCV 88.3, and platelets 422. Bicarb is 22, BUN 11, and creatinine 0.71. Liver tests are normal. Urinalysis is negative. CT scan shows diverticulitis, lower sigmoid and upper rectum. No apparent abscess. IMPRESSION: 1. Recurrent diverticulitis, present despite multiple rounds of recent antibiotics. 2. History of colon polyps. RECOMMENDATION: 1. Continue intravenous Zosyn. 2. Add Glucerna twice daily. 3. Monitor CBC. 4. Surgery following. 5. Given appearance of images on CT and diagnosis of diverticulitis, hold on colonoscopy for now. CC/NICOLASA Joel Strange M.D. / [id number] CC: Mani Neff M.D. Colleen Schmitt, M.D.
--- NOTE | ~2016-12-15 | CN ---
Consultation Report [facility] [address] [place]. [address] NAME: ERNESTINE CHANCE : 41 STATUS : ADM IN [facility]#: [id number] AGE: 71 ADM/REG DATE : 12/15/16 MR#: [id number] REPORT SERV DATE: 12/18/16 DICTATED BY: JULIO HOWARD DATE: 12/18/16 REPORT STATUS : Draft TRANSCRIBED BY: MODL DATE: 12/18/16 CARDIOLOGY CONSULT DATE OF CONSULTATION: 12/18/2016 CHIEF COMPLAINT: Abdominal pain. REASON FOR CONSULTATION: Atrial fibrillation, seen in preop holding. HISTORY OF PRESENT ILLNESS: Ms. Chance is a very pleasant 71-year-old white woman with no significant past cardiac history, who was hospitalized a couple weeks ago here at [facility] for diverticulitis. She stayed for five days and then went home for almost a week, but could not eat or drink, had still had abdominal pain, loose but non bloody stools, and fevers. She was hospitalized three days ago again and received more antibiotics, but because of persistent diverticulitis she was recommended for GI surgery per Dr. Gómez. Today, she came to preop holding and had an EKG which revealed atrial fibrillation with rapid ventricular response and we were asked to see her in consultation. Ms. Chance reports that she has not had any palpitations. No chest pain, shortness of breath, or syncope. No swelling. She still has some light abdominal pain. REVIEW OF SYSTEMS: All other systems are negative. ALLERGIES: NO KNOWN DRUG ALLERGIES. MEDICATIONS: At home included aspirin, coenzyme Q10, Nexium, Premarin, Benicar, Crestor, Januvia, Ambien. CARDIAC RISK FACTORS: Diabetes, hypertension, cholesterol, former tobacco. Denies family history. SOCIAL HISTORY: The patient lives in [place], [place]. . Two children alive and well. She is retired nurse from [employer]. FAMILY HISTORY: Negative for coronary artery disease at young age. PAST MEDICAL HISTORY: Status post tonsillectomy, status post gallbladder surgery, status post hysterectomy, status post wrist fracture. She denies any prior heart or stroke problems. PHYSICAL EXAMINATION: GENERAL: Well-developed, well-nourished elderly white woman, in no acute distress. VITAL SIGNS: Blood pressure 130/71, pulse 100. Telemetry reveals atrial fibrillation. HEENT: Anicteric. No xanthelasma, lips without cyanosis. Consultation Report [place] [id number] [facility] [address] NAME: ERNESTINE CHANCE : 41 STATUS : ADM IN PAT#: [id number] AGE: 71 ADM/REG DATE : 12/15/16 MR#: [id number] REPORT SERV DATE: 12/18/16 DICTATED BY: JULIO HOWARD DATE: 12/18/16 REPORT STATUS : Draft TRANSCRIBED BY: NICOLASA DATE: 12/18/16 NECK: No JVD, no thyromegaly, carotids 2+ and symmetrical without bruits. LUNGS: Clear to auscultation. No use of accessory muscles. HEART: Irregularly irregular without murmur, gallop, or rub. ABDOMEN: Soft. Positive bowel sounds. Mild diffuse tenderness. MS: No kyphosis. Normal muscle tone. EXT: Femoral and pedal pulses 2+ and symmetrical. No clubbing, cyanosis or edema. No varicosities. SKIN: No venous stasis changes. NEURO: Alert and oriented x 3. The EKG reveals atrial fibrillation with the rapid ventricular response, otherwise normal tracing. There is no prior tracing. The sodium 141, potassium 3.9, chloride 112, CO2 of 22, glucose is 98, BUN 4, creatinine 0.58. TSH of 2.60, free T4 of 1.58. Upper limit of normal 1.46. White count 11, hemoglobin 8.7, hematocrit 27.5, platelets 340,000. IMPRESSION: 1. Reported need for GI surgery for diverticulitis. 2. Paroxysmal atrial fibrillation with rapid ventricular response. 3. [id number] score of 4 for hypertension, age 65 to 73, female sex, and diabetes mellitus. 4. Hypertension, currently under good control. 5. Diabetes mellitus. 6. Anemia. RECOMMENDATIONS: 1. IV diltiazem bolus and infusion for rate control. 2. Case was discussed with Dr. Corrigan and Dr. Gómez via telephone regarding the risks, benefits, and complications of surgery today or after her heart rate is better controlled and all of us felt that it would be better to delay surgery for approximately 24 hours. So, that she may have more stable hemodynamics for the procedure. Transfer to telemetry bed just diltiazem as needed for heart rate 60 to 100 beats per minute. 3. Consider anticoagulation when okay with Dr. Gómez postoperatively. 4. Echocardiogram already done. Report: Normal LV systolic function, LVEF 55%. Normal RV function mild to moderate MR, mild TR, moderate left atrial enlargement. DAISY/NICOLASA Julio Howard M.D. / [id number] Consultation Report [address] [address] NAME: ERNESTINE CHANCE : 41 STATUS : ADM IN [facility]#: [id number] AGE: 71 ADM/REG DATE : 12/15/16 MR#: [id number] REPORT SERV DATE: 12/18/16 DICTATED BY: JULIO HOWARD DATE: 12/18/16 REPORT STATUS : Draft TRANSCRIBED BY: NICOLASA DATE: 12/18/16 CC: Mani Mei Jr., M.D.
[~2016-12-15 13:23] MED LIST changes: +FLAG500TAB PO; +MACROBID PO; +NORCO1 TA1 PO; +PYR200 PO
[2016-12-15 13:54] LABS: BASOPHILS 0.1 %; BASOPHILS ABSOLUTE 0.02 10/3/uL (0.0-0.16); EOSINOPHILS 0.1 %; EOSINOPHILS ABSOLUTE 0.02 10/3/uL (0.0-0.53); ER CBC TAT 0 Hrs 05 Mins; HEMATOCRIT 33.1 % (36.0-48.0); HEMOGLOBIN 10.5 g/dL (12.0-16.0); IMMATURE GRANULOCYTES 0.3 %; IMMATURE GRANULOCYTES ABSOLUTE 0.04 10/3/uL (0.0-0.11); LYMPHOCYTES 8.6 %; LYMPHOCYTES ABSOLUTE 1.24 10/3/uL (0.67-4.30); MANUAL DIFF NO %; MEAN CORPUS HGB CONC 31.7 g/dL (32.0-36.0); MEAN CORPUSCULAR HEMOGLOB 27.3 pg (26.0-34.0); MEAN CORPUSCULAR VOLUME 86.2 fL (80-100); MEAN PLATELET VOLUME 9.4 fL (9.2-13.0); MONOCYTES ABSOLUTE 0.72 10/3/uL (0.21-1.20); NEUTROPHILS 85.9 %; NEUTROPHILS ABSOLUTE 12.31 10/3/uL (2.02-8.40); PLATELET COUNT 559 10/3/uL (150-400); RBC DISTRIBUTION WIDTH 16.5 % (12.0-16.0); RED CELL COUNT 3.84 10/6/uL (4.0-5.6); WHITE BLOOD CELLS 14.4 10/3/uL (4.5-10.5)
[2016-12-15 14:13] LABS: A/G RATIO 0.7 (0.7-1.9); ALBUMIN 2.6 G/DL (3.5-5.0); BUN (BLOOD UREA NITROGEN) 14 MG/DL (6-23); CALCIUM, SERUM 8.4 MG/DL (8.5-10.4); CHLORIDE, SERUM 113 MMOL/L (96-112); CO2 (CARBON DIOXIDE) 25 MMOL/L (24-34); CREATININE 0.65 MG/DL (0.55-1.02); GFR AFRICAN AMERICAN 102 ML/MIN (>=60); GFR NON AFRICAN AMERICAN 88 ML/MIN (>=60); GLOBULIN 3.8 G/DL (2.5-4.1); GLUCOSE, SERUM 110 MG/DL (60-99); POTASSIUM, SERUM 3.4 MMOL/L (3.5-5.3); SGOT(AST) 19 U/L (5-40); SGPT(ALT) 15 U/L (5-65); SODIUM, SERUM 146 MMOL/L (135-148); TOTAL PROTEIN 6.4 G/DL (6.0-8.5)
[2016-12-15 14:14] LABS: ALKALINE PHOSPHATASE 69 U/L (45-117); TOTAL BILIRUBIN 0.9 MG/DL (0-1.2)
[2016-12-15] MEDS ORDERED: AMB10 PO (16:06)
[2016-12-15 16:27] LABS: ASCORBIC ACID (UR NOT ORDER) NEG (NEG); BILIRUBIN, URINE NEGATIVE (NEG); ER URINALYSIS TAT 0 Hrs 16 Mins; KETONE, URINE NEGATIVE (NEG); LEUKOCYTE ESTERASE(NOT OR NEG (NEG); NITRITE (URINE) NEG (NEG); WBC (NOT ORDERED) (RFLEX) 1 (0-5)
[2016-12-16 07:04] LABS: HEMATOCRIT 30.1 % (36.0-48.0); HEMOGLOBIN 9.5 g/dL (12.0-16.0); MEAN CORPUS HGB CONC 31.6 g/dL (32.0-36.0); MEAN CORPUSCULAR HEMOGLOB 27.9 pg (26.0-34.0); MEAN CORPUSCULAR VOLUME 88.3 fL (80-100); MEAN PLATELET VOLUME 9.3 fL (9.2-13.0); PLATELET COUNT 422 10/3/uL (150-400); RED CELL COUNT 3.41 10/6/uL (4.0-5.6); WHITE BLOOD CELLS 13.5 10/3/uL (4.5-10.5)
[2016-12-16 07:07] LABS: MANUAL DIFF YES %
[2016-12-16 07:21] LABS: BUN (BLOOD UREA NITROGEN) 11 MG/DL (6-23); CALCIUM, SERUM 7.8 MG/DL (8.5-10.4); CHLORIDE, SERUM 113 MMOL/L (96-112); CO2 (CARBON DIOXIDE) 22 MMOL/L (24-34); CREATININE 0.71 MG/DL (0.55-1.02); GFR AFRICAN AMERICAN 98 ML/MIN (>=60); GFR NON AFRICAN AMERICAN 85 ML/MIN (>=60); GLUCOSE, SERUM 131 MG/DL (60-99); POTASSIUM, SERUM 3.7 MMOL/L (3.5-5.3); SODIUM, SERUM 143 MMOL/L (135-148)
[2016-12-16 09:44] LABS: ANISOCYTOSIS 1+ (5-10/OIF) (0-5/OIF); BAND NEUTROPHILS 2 %; EOSINOPHILS 1 %; EOSINOPHILS ABSOLUTE (CALC) 0.14 10/3/uL (0.0-0.53); LYMPHOCYTES 11 %; LYMPHOCYTES ABSOLUTE (CALC) 1.49 10/3/uL (0.67-4.30); MONOCYTES 7 %; MONOCYTES ABSOLUTE (CALC) 0.95 10/3/uL (0.21-1.20); NEUTROPHILS ABSOLUTE (CALC) 10.94 10/3/uL (2.02-8.40); PLATELET ESTIMATE SLT INC (ADEQUATE); SEGMENTED NEUTROPHIL (0) 79 %; TOTAL NUCLEATED CELLS 100
[2016-12-16 09:45] LABS: MACROCYTES 1+ (5-10/OIF) (0-5/OIF)
[2016-12-17 07:52] LABS: BASOPHILS 0.1 %; BASOPHILS ABSOLUTE 0.01 10/3/uL (0.0-0.16); EOSINOPHILS 0.4 %; EOSINOPHILS ABSOLUTE 0.04 10/3/uL (0.0-0.53); HEMATOCRIT 27.5 % (36.0-48.0); HEMOGLOBIN 8.7 g/dL (12.0-16.0); IMMATURE GRANULOCYTES 0.1 %; IMMATURE GRANULOCYTES ABSOLUTE 0.01 10/3/uL (0.0-0.11); LYMPHOCYTES 14.1 %; LYMPHOCYTES ABSOLUTE 1.55 10/3/uL (0.67-4.30); MEAN CORPUS HGB CONC 31.6 g/dL (32.0-36.0); MEAN CORPUSCULAR HEMOGLOB 27.8 pg (26.0-34.0); MEAN CORPUSCULAR VOLUME 87.9 fL (80-100); MEAN PLATELET VOLUME 9.3 fL (9.2-13.0); MONOCYTES ABSOLUTE 0.99 10/3/uL (0.21-1.20); NEUTROPHILS 76.3 %; NEUTROPHILS ABSOLUTE 8.39 10/3/uL (2.02-8.40); PLATELET COUNT 348 10/3/uL (150-400); RBC DISTRIBUTION WIDTH 17.3 % (12.0-16.0); RED CELL COUNT 3.13 10/6/uL (4.0-5.6)
[2016-12-17 07:53] LABS: MANUAL DIFF NO %
[2016-12-17 08:05] LABS: BUN (BLOOD UREA NITROGEN) 7 MG/DL (6-23); CHLORIDE, SERUM 111 MMOL/L (96-112); CO2 (CARBON DIOXIDE) 20 MMOL/L (24-34); CREATININE 0.62 MG/DL (0.55-1.02); GFR AFRICAN AMERICAN 104 ML/MIN (>=60); GFR NON AFRICAN AMERICAN 89 ML/MIN (>=60); GLUCOSE, SERUM 91 MG/DL (60-99); POTASSIUM, SERUM 4.3 MMOL/L (3.5-5.3); SODIUM, SERUM 140 MMOL/L (135-148)
[2016-12-18 04:01] LABS: BASOPHILS 0.1 %; BASOPHILS ABSOLUTE 0.01 10/3/uL (0.0-0.16); EOSINOPHILS 0.5 %; EOSINOPHILS ABSOLUTE 0.05 10/3/uL (0.0-0.53); HEMATOCRIT 27.3 % (36.0-48.0); HEMOGLOBIN 8.8 g/dL (12.0-16.0); IMMATURE GRANULOCYTES 0.4 %; IMMATURE GRANULOCYTES ABSOLUTE 0.04 10/3/uL (0.0-0.11); LYMPHOCYTES 16.3 %; MEAN CORPUS HGB CONC 32.2 g/dL (32.0-36.0); MEAN CORPUSCULAR HEMOGLOB 27.2 pg (26.0-34.0); MEAN PLATELET VOLUME 9.7 fL (9.2-13.0); MONOCYTES ABSOLUTE 0.74 10/3/uL (0.21-1.20); NEUTROPHILS 74.7 %; NEUTROPHILS ABSOLUTE 6.88 10/3/uL (2.02-8.40); PLATELET COUNT 308 10/3/uL (150-400); RBC DISTRIBUTION WIDTH 16.6 % (12.0-16.0); RED CELL COUNT 3.23 10/6/uL (4.0-5.6); WHITE BLOOD CELLS 9.2 10/3/uL (4.5-10.5)
[2016-12-18 04:02] LABS: MANUAL DIFF NO %; MEAN CORPUSCULAR VOLUME 84.5 fL (80-100)
[2016-12-18 08:07] LABS: BUN (BLOOD UREA NITROGEN) 4 MG/DL (6-23); CALCIUM, SERUM 8.3 MG/DL (8.5-10.4); CHLORIDE, SERUM 112 MMOL/L (96-112); CO2 (CARBON DIOXIDE) 22 MMOL/L (24-34); CREATININE 0.58 MG/DL (0.55-1.02); GFR AFRICAN AMERICAN 106 ML/MIN (>=60); GFR NON AFRICAN AMERICAN 91 ML/MIN (>=60); GLUCOSE, SERUM 98 MG/DL (60-99); POTASSIUM, SERUM 3.9 MMOL/L (3.5-5.3); SODIUM, SERUM 141 MMOL/L (135-148)
[2016-12-18 13:55] LABS: FREE T4 1.58 NG/DL (0.76-1.46)
[2016-12-19 04:39] LABS: BASOPHILS 0.2 %; BASOPHILS ABSOLUTE 0.01 10/3/uL (0.0-0.16); EOSINOPHILS 2.6 %; EOSINOPHILS ABSOLUTE 0.14 10/3/uL (0.0-0.53); HEMATOCRIT 25.2 % (36.0-48.0); HEMOGLOBIN 8.2 g/dL (12.0-16.0); IMMATURE GRANULOCYTES 0.2 %; IMMATURE GRANULOCYTES ABSOLUTE 0.01 10/3/uL (0.0-0.11); LYMPHOCYTES 24.9 %; LYMPHOCYTES ABSOLUTE 1.35 10/3/uL (0.67-4.30); MEAN CORPUS HGB CONC 32.5 g/dL (32.0-36.0); MEAN CORPUSCULAR HEMOGLOB 27.7 pg (26.0-34.0); MEAN CORPUSCULAR VOLUME 85.1 fL (80-100); MEAN PLATELET VOLUME 9.4 fL (9.2-13.0); MONOCYTES 7.4 %; NEUTROPHILS 64.7 %; NEUTROPHILS ABSOLUTE 3.52 10/3/uL (2.02-8.40); PLATELET COUNT 315 10/3/uL (150-400); RBC DISTRIBUTION WIDTH 16.7 % (12.0-16.0); RED CELL COUNT 2.96 10/6/uL (4.0-5.6)
[2016-12-19 04:40] LABS: MANUAL DIFF NO %; WHITE BLOOD CELLS 5.4 10/3/uL (4.5-10.5)
[2016-12-19 04:57] LABS: A/G RATIO 0.6 (0.7-1.9); ALBUMIN 2.1 G/DL (3.5-5.0); BUN (BLOOD UREA NITROGEN) 4 MG/DL (6-23); CALCIUM, SERUM 8.3 MG/DL (8.5-10.4); CHLORIDE, SERUM 112 MMOL/L (96-112); CO2 (CARBON DIOXIDE) 22 MMOL/L (24-34); CREATININE 0.58 MG/DL (0.55-1.02); GFR AFRICAN AMERICAN 106 ML/MIN (>=60); GFR NON AFRICAN AMERICAN 91 ML/MIN (>=60); GLOBULIN 3.7 G/DL (2.5-4.1); PREALBUMIN 8.8 MG/DL (17.0-43.0); SGOT(AST) 62 U/L (5-40); SGPT(ALT) 41 U/L (5-65); SODIUM, SERUM 140 MMOL/L (135-148); TOTAL PROTEIN 5.8 G/DL (6.0-8.5)
[2016-12-19 04:58] LABS: ALKALINE PHOSPHATASE 87 U/L (45-117); GLUCOSE, SERUM 77 MG/DL (60-99); TOTAL BILIRUBIN 0.4 MG/DL (0-1.2)
[2016-12-20 03:48] LABS: BASOPHILS 0.2 %; BASOPHILS ABSOLUTE 0.01 10/3/uL (0.0-0.16); EOSINOPHILS 1.7 %; HEMOGLOBIN 9.7 g/dL (12.0-16.0); IMMATURE GRANULOCYTES 0.2 %; IMMATURE GRANULOCYTES ABSOLUTE 0.01 10/3/uL (0.0-0.11); LYMPHOCYTES 23.4 %; LYMPHOCYTES ABSOLUTE 1.35 10/3/uL (0.67-4.30); MEAN CORPUS HGB CONC 32.7 g/dL (32.0-36.0); MEAN CORPUSCULAR HEMOGLOB 27.6 pg (26.0-34.0); MEAN CORPUSCULAR VOLUME 84.6 fL (80-100); MONOCYTES 9.3 %; MONOCYTES ABSOLUTE 0.54 10/3/uL (0.21-1.20); NEUTROPHILS 65.2 %; NEUTROPHILS ABSOLUTE 3.77 10/3/uL (2.02-8.40); PLATELET COUNT 385 10/3/uL (150-400); RBC DISTRIBUTION WIDTH 16.2 % (12.0-16.0); RED CELL COUNT 3.51 10/6/uL (4.0-5.6); WHITE BLOOD CELLS 5.8 10/3/uL (4.5-10.5)
[2016-12-20 03:49] LABS: HEMATOCRIT 29.7 % (36.0-48.0); MANUAL DIFF NO %
[2016-12-20 04:04] LABS: ALBUMIN 2.2 G/DL (3.5-5.0); BUN (BLOOD UREA NITROGEN) 4 MG/DL (6-23); CALCIUM, SERUM 8.9 MG/DL (8.5-10.4); CHLORIDE, SERUM 107 MMOL/L (96-112); CO2 (CARBON DIOXIDE) 21 MMOL/L (24-34); GFR AFRICAN AMERICAN 105 ML/MIN (>=60); GFR NON AFRICAN AMERICAN 90 ML/MIN (>=60); GLUCOSE, SERUM 68 MG/DL (60-99); POTASSIUM, SERUM 3.8 MMOL/L (3.5-5.3); SGOT(AST) 56 U/L (5-40); SGPT(ALT) 47 U/L (5-65); SODIUM, SERUM 136 MMOL/L (135-148); TOTAL BILIRUBIN 0.4 MG/DL (0-1.2); TOTAL PROTEIN 6.7 G/DL (6.0-8.5)
[2016-12-20 04:05] LABS: A/G RATIO 0.5 (0.7-1.9); ALKALINE PHOSPHATASE 107 U/L (45-117); GLOBULIN 4.5 G/DL (2.5-4.1)
[2016-12-21 05:09] LABS: BASOPHILS 0.2 %; BASOPHILS ABSOLUTE 0.01 10/3/uL (0.0-0.16); EOSINOPHILS 1.7 %; EOSINOPHILS ABSOLUTE 0.11 10/3/uL (0.0-0.53); HEMATOCRIT 30.9 % (36.0-48.0); HEMOGLOBIN 9.9 g/dL (12.0-16.0); IMMATURE GRANULOCYTES 0.2 %; IMMATURE GRANULOCYTES ABSOLUTE 0.01 10/3/uL (0.0-0.11); LYMPHOCYTES ABSOLUTE 1.23 10/3/uL (0.67-4.30); MEAN CORPUSCULAR VOLUME 84.4 fL (80-100); MONOCYTES 7.7 %; NEUTROPHILS 71.2 %; NEUTROPHILS ABSOLUTE 4.62 10/3/uL (2.02-8.40); PLATELET COUNT 379 10/3/uL (150-400); RBC DISTRIBUTION WIDTH 16.2 % (12.0-16.0); RED CELL COUNT 3.66 10/6/uL (4.0-5.6); WHITE BLOOD CELLS 6.5 10/3/uL (4.5-10.5)
[2016-12-21 05:11] LABS: MANUAL DIFF NO %
[2016-12-21 05:15] LABS: INTERNATIONAL NORMAL RATI 1.2 UNITS (-); PROTIME (NOT ORD) 14.9 SEC (12.0-14.5)
[2016-12-21 05:27] LABS: A/G RATIO 0.5 (0.7-1.9); ALBUMIN 2.3 G/DL (3.5-5.0); ALKALINE PHOSPHATASE 111 U/L (45-117); BUN (BLOOD UREA NITROGEN) 4 MG/DL (6-23); CALCIUM, SERUM 8.7 MG/DL (8.5-10.4); CHLORIDE, SERUM 106 MMOL/L (96-112); CO2 (CARBON DIOXIDE) 21 MMOL/L (24-34); DIRECT BILIRUBIN 0.1 MG/DL (0.0-0.4); GFR AFRICAN AMERICAN 105 ML/MIN (>=60); GFR NON AFRICAN AMERICAN 90 ML/MIN (>=60); GLOBULIN 4.5 G/DL (2.5-4.1); GLUCOSE, SERUM 71 MG/DL (60-99); INDIRECT BILIRUBIN(NOT ORDER) 0.6 MG/DL (0.1-0.9); POTASSIUM, SERUM 3.9 MMOL/L (3.5-5.3); SGOT(AST) 39 U/L (5-40); SGPT(ALT) 43 U/L (5-65); SODIUM, SERUM 139 MMOL/L (135-148); TOTAL BILIRUBIN 0.7 MG/DL (0-1.2); TOTAL PROTEIN 6.8 G/DL (6.0-8.5)
[2016-12-21 18:28] LABS: BASOPHILS 0.1 %; BASOPHILS ABSOLUTE 0.01 10/3/uL (0.0-0.16); EOSINOPHILS 0.3 %; EOSINOPHILS ABSOLUTE 0.03 10/3/uL (0.0-0.53); HEMOGLOBIN 8.9 g/dL (12.0-16.0); IMMATURE GRANULOCYTES 0.2 %; IMMATURE GRANULOCYTES ABSOLUTE 0.02 10/3/uL (0.0-0.11); LYMPHOCYTES 7.1 %; LYMPHOCYTES ABSOLUTE 0.64 10/3/uL (0.67-4.30); MEAN CORPUSCULAR HEMOGLOB 26.8 pg (26.0-34.0); MEAN CORPUSCULAR VOLUME 83.7 fL (80-100); MONOCYTES 3.7 %; MONOCYTES ABSOLUTE 0.33 10/3/uL (0.21-1.20); NEUTROPHILS 88.6 %; NEUTROPHILS ABSOLUTE 7.94 10/3/uL (2.02-8.40); PLATELET COUNT 376 10/3/uL (150-400); RBC DISTRIBUTION WIDTH 16.2 % (12.0-16.0); RED CELL COUNT 3.32 10/6/uL (4.0-5.6)
[2016-12-21 18:29] LABS: BUN (BLOOD UREA NITROGEN) 4 MG/DL (6-23); CALCIUM, SERUM 8.1 MG/DL (8.5-10.4); CHLORIDE, SERUM 107 MMOL/L (96-112); CO2 (CARBON DIOXIDE) 20 MMOL/L (24-34); CREATININE 0.51 MG/DL (0.55-1.02); GFR AFRICAN AMERICAN 111 ML/MIN (>=60); GFR NON AFRICAN AMERICAN 95 ML/MIN (>=60); POTASSIUM, SERUM 4.3 MMOL/L (3.5-5.3); SODIUM, SERUM 138 MMOL/L (135-148)
[2016-12-21 18:30] LABS: GLUCOSE, SERUM 89 MG/DL (60-99)
[2016-12-21 18:31] LABS: HEMATOCRIT 27.8 % (36.0-48.0); MANUAL DIFF NO %
[2016-12-22 05:44] LABS: BASOPHILS 0.1 %; BASOPHILS ABSOLUTE 0.01 10/3/uL (0.0-0.16); EOSINOPHILS 0 %; HEMATOCRIT 25.6 % (36.0-48.0); HEMOGLOBIN 8.3 g/dL (12.0-16.0); IMMATURE GRANULOCYTES 0.3 %; IMMATURE GRANULOCYTES ABSOLUTE 0.03 10/3/uL (0.0-0.11); LYMPHOCYTES 5.4 %; LYMPHOCYTES ABSOLUTE 0.52 10/3/uL (0.67-4.30); MEAN CORPUS HGB CONC 32.4 g/dL (32.0-36.0); MEAN CORPUSCULAR HEMOGLOB 27.5 pg (26.0-34.0); MEAN CORPUSCULAR VOLUME 84.8 fL (80-100); MEAN PLATELET VOLUME 9.1 fL (9.2-13.0); MONOCYTES 2.6 %; MONOCYTES ABSOLUTE 0.25 10/3/uL (0.21-1.20); NEUTROPHILS 91.6 %; NEUTROPHILS ABSOLUTE 8.87 10/3/uL (2.02-8.40); PLATELET COUNT 342 10/3/uL (150-400); RBC DISTRIBUTION WIDTH 16.3 % (12.0-16.0); RED CELL COUNT 3.02 10/6/uL (4.0-5.6); WHITE BLOOD CELLS 9.7 10/3/uL (4.5-10.5)
[2016-12-22 05:45] LABS: MANUAL DIFF NO %
[2016-12-22 05:53] LABS: A/G RATIO 0.6 (0.7-1.9); ALBUMIN 2.2 G/DL (3.5-5.0); BUN (BLOOD UREA NITROGEN) 7 MG/DL (6-23); CALCIUM, SERUM 8.6 MG/DL (8.5-10.4); CHLORIDE, SERUM 107 MMOL/L (96-112); CO2 (CARBON DIOXIDE) 19 MMOL/L (24-34); CREATININE 0.55 MG/DL (0.55-1.02); GFR AFRICAN AMERICAN 108 ML/MIN (>=60); GFR NON AFRICAN AMERICAN 93 ML/MIN (>=60); GLOBULIN 3.7 G/DL (2.5-4.1); POTASSIUM, SERUM 4.3 MMOL/L (3.5-5.3); SGOT(AST) 18 U/L (5-40); SGPT(ALT) 28 U/L (5-65); SODIUM, SERUM 139 MMOL/L (135-148); TOTAL BILIRUBIN 0.4 MG/DL (0-1.2); TOTAL PROTEIN 5.9 G/DL (6.0-8.5)
[2016-12-22 05:54] LABS: ALKALINE PHOSPHATASE 83 U/L (45-117); GLUCOSE, SERUM 122 MG/DL (60-99)
[2016-12-23 06:56] LABS: BASOPHILS 0 %; EOSINOPHILS 0.1 %; EOSINOPHILS ABSOLUTE 0.01 10/3/uL (0.0-0.53); HEMATOCRIT 25.3 % (36.0-48.0); HEMOGLOBIN 8.1 g/dL (12.0-16.0); IMMATURE GRANULOCYTES 0.3 %; IMMATURE GRANULOCYTES ABSOLUTE 0.03 10/3/uL (0.0-0.11); LYMPHOCYTES ABSOLUTE 1.55 10/3/uL (0.67-4.30); MEAN CORPUSCULAR VOLUME 84.3 fL (80-100); MEAN PLATELET VOLUME 9.6 fL (9.2-13.0); MONOCYTES 7.7 %; MONOCYTES ABSOLUTE 0.92 10/3/uL (0.21-1.20); NEUTROPHILS 78.9 %; NEUTROPHILS ABSOLUTE 9.37 10/3/uL (2.02-8.40); PLATELET COUNT 376 10/3/uL (150-400); RBC DISTRIBUTION WIDTH 16.8 % (12.0-16.0); WHITE BLOOD CELLS 11.9 10/3/uL (4.5-10.5)
[2016-12-23 07:00] LABS: MANUAL DIFF NO %
[2016-12-23 07:05] LABS: BUN (BLOOD UREA NITROGEN) 9 MG/DL (6-23); CALCIUM, SERUM 8.6 MG/DL (8.5-10.4); CHLORIDE, SERUM 110 MMOL/L (96-112); CREATININE 0.46 MG/DL (0.55-1.02); GFR AFRICAN AMERICAN 114 ML/MIN (>=60); GFR NON AFRICAN AMERICAN 99 ML/MIN (>=60); GLUCOSE, SERUM 105 MG/DL (60-99); POTASSIUM, SERUM 4.4 MMOL/L (3.5-5.3); SODIUM, SERUM 144 MMOL/L (135-148)
[2016-12-23 07:06] LABS: CO2 (CARBON DIOXIDE) 23 MMOL/L (24-34)
[2016-12-24 05:24] LABS: BASOPHILS 0.1 %; BASOPHILS ABSOLUTE 0.01 10/3/uL (0.0-0.16); EOSINOPHILS 0.4 %; EOSINOPHILS ABSOLUTE 0.04 10/3/uL (0.0-0.53); HEMATOCRIT 27.2 % (36.0-48.0); HEMOGLOBIN 8.6 g/dL (12.0-16.0); IMMATURE GRANULOCYTES 0.3 %; IMMATURE GRANULOCYTES ABSOLUTE 0.03 10/3/uL (0.0-0.11); LYMPHOCYTES 20.3 %; MEAN CORPUS HGB CONC 31.6 g/dL (32.0-36.0); MEAN CORPUSCULAR VOLUME 85.3 fL (80-100); MEAN PLATELET VOLUME 9.6 fL (9.2-13.0); MONOCYTES 9.2 %; MONOCYTES ABSOLUTE 0.91 10/3/uL (0.21-1.20); NEUTROPHILS 69.7 %; NEUTROPHILS ABSOLUTE 6.86 10/3/uL (2.02-8.40); PLATELET COUNT 368 10/3/uL (150-400); RED CELL COUNT 3.19 10/6/uL (4.0-5.6); WHITE BLOOD CELLS 9.9 10/3/uL (4.5-10.5)
[2016-12-24 05:31] LABS: MANUAL DIFF NO %
[2016-12-24 05:44] LABS: A/G RATIO 0.6 (0.7-1.9); ALBUMIN 1.9 G/DL (3.5-5.0); BUN (BLOOD UREA NITROGEN) 10 MG/DL (6-23); CALCIUM, SERUM 8.1 MG/DL (8.5-10.4); CHLORIDE, SERUM 107 MMOL/L (96-112); CO2 (CARBON DIOXIDE) 27 MMOL/L (24-34); CREATININE 0.37 MG/DL (0.55-1.02); GFR AFRICAN AMERICAN 123 ML/MIN (>=60); GFR NON AFRICAN AMERICAN 106 ML/MIN (>=60); GLUCOSE, SERUM 91 MG/DL (60-99); POTASSIUM, SERUM 4.4 MMOL/L (3.5-5.3); SGOT(AST) 24 U/L (5-40); SGPT(ALT) 24 U/L (5-65); SODIUM, SERUM 143 MMOL/L (135-148); TOTAL BILIRUBIN 0.4 MG/DL (0-1.2); TOTAL PROTEIN 4.9 G/DL (6.0-8.5)
[2016-12-24 05:47] LABS: ALKALINE PHOSPHATASE 66 U/L (45-117)
[2016-12-25 05:19] LABS: BASOPHILS 0.1 %; BASOPHILS ABSOLUTE 0.01 10/3/uL (0.0-0.16); EOSINOPHILS 3.2 %; EOSINOPHILS ABSOLUTE 0.25 10/3/uL (0.0-0.53); HEMOGLOBIN 7.6 g/dL (12.0-16.0); IMMATURE GRANULOCYTES 0.3 %; IMMATURE GRANULOCYTES ABSOLUTE 0.02 10/3/uL (0.0-0.11); LYMPHOCYTES 24.2 %; LYMPHOCYTES ABSOLUTE 1.92 10/3/uL (0.67-4.30); MEAN CORPUS HGB CONC 31.7 g/dL (32.0-36.0); MEAN CORPUSCULAR HEMOGLOB 27.2 pg (26.0-34.0); MEAN PLATELET VOLUME 9.1 fL (9.2-13.0); MONOCYTES 9.2 %; MONOCYTES ABSOLUTE 0.73 10/3/uL (0.21-1.20); PLATELET COUNT 327 10/3/uL (150-400); RBC DISTRIBUTION WIDTH 17.5 % (12.0-16.0); RED CELL COUNT 2.79 10/6/uL (4.0-5.6); WHITE BLOOD CELLS 7.9 10/3/uL (4.5-10.5)
[2016-12-25 05:20] LABS: MANUAL DIFF NO %
[2016-12-25 05:37] LABS: A/G RATIO 0.6 (0.7-1.9); ALBUMIN 1.8 G/DL (3.5-5.0); ALKALINE PHOSPHATASE 55 U/L (45-117); BUN (BLOOD UREA NITROGEN) 11 MG/DL (6-23); CALCIUM, SERUM 8.1 MG/DL (8.5-10.4); CHLORIDE, SERUM 106 MMOL/L (96-112); CO2 (CARBON DIOXIDE) 27 MMOL/L (24-34); GFR AFRICAN AMERICAN 111 ML/MIN (>=60); GFR NON AFRICAN AMERICAN 96 ML/MIN (>=60); GLUCOSE, SERUM 86 MG/DL (60-99); POTASSIUM, SERUM 3.7 MMOL/L (3.5-5.3); SGOT(AST) 17 U/L (5-40); SGPT(ALT) 19 U/L (5-65); SODIUM, SERUM 139 MMOL/L (135-148); TOTAL BILIRUBIN 0.3 MG/DL (0-1.2); TOTAL PROTEIN 4.8 G/DL (6.0-8.5)
[2016-12-26 07:00] LABS: BASOPHILS 0.1 %; BASOPHILS ABSOLUTE 0.01 10/3/uL (0.0-0.16); EOSINOPHILS 2.8 %; EOSINOPHILS ABSOLUTE 0.21 10/3/uL (0.0-0.53); HEMATOCRIT 24.1 % (36.0-48.0); HEMOGLOBIN 7.6 g/dL (12.0-16.0); IMMATURE GRANULOCYTES 0.4 %; IMMATURE GRANULOCYTES ABSOLUTE 0.03 10/3/uL (0.0-0.11); LYMPHOCYTES 18.3 %; LYMPHOCYTES ABSOLUTE 1.35 10/3/uL (0.67-4.30); MEAN CORPUS HGB CONC 31.5 g/dL (32.0-36.0); MEAN CORPUSCULAR VOLUME 85.8 fL (80-100); MEAN PLATELET VOLUME 8.8 fL (9.2-13.0); MONOCYTES 7.3 %; MONOCYTES ABSOLUTE 0.54 10/3/uL (0.21-1.20); NEUTROPHILS 71.1 %; NEUTROPHILS ABSOLUTE 5.23 10/3/uL (2.02-8.40); PLATELET COUNT 346 10/3/uL (150-400); RBC DISTRIBUTION WIDTH 17.3 % (12.0-16.0); RED CELL COUNT 2.81 10/6/uL (4.0-5.6); WHITE BLOOD CELLS 7.4 10/3/uL (4.5-10.5)
[2016-12-26 07:03] LABS: MANUAL DIFF NO %
[2016-12-26 07:12] LABS: CALCIUM, SERUM 8.4 MG/DL (8.5-10.4); CHLORIDE, SERUM 106 MMOL/L (96-112); CO2 (CARBON DIOXIDE) 25 MMOL/L (24-34); CREATININE 0.45 MG/DL (0.55-1.02); GFR AFRICAN AMERICAN 115 ML/MIN (>=60); GFR NON AFRICAN AMERICAN 99 ML/MIN (>=60); GLUCOSE, SERUM 90 MG/DL (60-99); POTASSIUM, SERUM 3.6 MMOL/L (3.5-5.3); SODIUM, SERUM 138 MMOL/L (135-148)
[2016-12-26 07:14] LABS: BUN (BLOOD UREA NITROGEN) 7 MG/DL (6-23)
[2016-12-27 06:12] LABS: BASOPHILS 0.1 %; BASOPHILS ABSOLUTE 0.01 10/3/uL (0.0-0.16); EOSINOPHILS 3.3 %; EOSINOPHILS ABSOLUTE 0.29 10/3/uL (0.0-0.53); HEMATOCRIT 24.1 % (36.0-48.0); HEMOGLOBIN 7.7 g/dL (12.0-16.0); IMMATURE GRANULOCYTES 0.2 %; IMMATURE GRANULOCYTES ABSOLUTE 0.02 10/3/uL (0.0-0.11); LYMPHOCYTES 18.9 %; LYMPHOCYTES ABSOLUTE 1.66 10/3/uL (0.67-4.30); MANUAL DIFF NO %; MEAN CORPUSCULAR HEMOGLOB 27.4 pg (26.0-34.0); MEAN CORPUSCULAR VOLUME 85.8 fL (80-100); MONOCYTES 6.7 %; MONOCYTES ABSOLUTE 0.59 10/3/uL (0.21-1.20); NEUTROPHILS 70.8 %; NEUTROPHILS ABSOLUTE 6.23 10/3/uL (2.02-8.40); PLATELET COUNT 364 10/3/uL (150-400); RBC DISTRIBUTION WIDTH 17.6 % (12.0-16.0); RED CELL COUNT 2.81 10/6/uL (4.0-5.6); WHITE BLOOD CELLS 8.8 10/3/uL (4.5-10.5)
[2016-12-28 06:51] LABS: BASOPHILS 0.2 %; BASOPHILS ABSOLUTE 0.02 10/3/uL (0.0-0.16); EOSINOPHILS 3.2 %; EOSINOPHILS ABSOLUTE 0.28 10/3/uL (0.0-0.53); HEMATOCRIT 24.2 % (36.0-48.0); HEMOGLOBIN 7.7 g/dL (12.0-16.0); IMMATURE GRANULOCYTES 0.3 %; IMMATURE GRANULOCYTES ABSOLUTE 0.03 10/3/uL (0.0-0.11); LYMPHOCYTES 16.6 %; LYMPHOCYTES ABSOLUTE 1.47 10/3/uL (0.67-4.30); MEAN CORPUS HGB CONC 31.8 g/dL (32.0-36.0); MEAN CORPUSCULAR HEMOGLOB 27.2 pg (26.0-34.0); MEAN CORPUSCULAR VOLUME 85.5 fL (80-100); MEAN PLATELET VOLUME 9.1 fL (9.2-13.0); MONOCYTES 8.2 %; MONOCYTES ABSOLUTE 0.73 10/3/uL (0.21-1.20); NEUTROPHILS 71.5 %; NEUTROPHILS ABSOLUTE 6.32 10/3/uL (2.02-8.40); PLATELET COUNT 381 10/3/uL (150-400); RED CELL COUNT 2.83 10/6/uL (4.0-5.6); WHITE BLOOD CELLS 8.9 10/3/uL (4.5-10.5)
[2016-12-28 06:54] LABS: MANUAL DIFF NO %
[2016-12-28 07:02] LABS: BUN (BLOOD UREA NITROGEN) 6 MG/DL (6-23); CALCIUM, SERUM 7.9 MG/DL (8.5-10.4); CHLORIDE, SERUM 107 MMOL/L (96-112); CO2 (CARBON DIOXIDE) 24 MMOL/L (24-34); CREATININE 0.39 MG/DL (0.55-1.02); GFR AFRICAN AMERICAN 121 ML/MIN (>=60); GFR NON AFRICAN AMERICAN 104 ML/MIN (>=60); GLUCOSE, SERUM 73 MG/DL (60-99); POTASSIUM, SERUM 3.6 MMOL/L (3.5-5.3); SODIUM, SERUM 141 MMOL/L (135-148)
[2016-12-29 07:15] LABS: BASOPHILS 0.1 %; BASOPHILS ABSOLUTE 0.01 10/3/uL (0.0-0.16); EOSINOPHILS 5.1 %; EOSINOPHILS ABSOLUTE 0.45 10/3/uL (0.0-0.53); HEMATOCRIT 25.8 % (36.0-48.0); HEMOGLOBIN 8.2 g/dL (12.0-16.0); IMMATURE GRANULOCYTES 0.6 %; IMMATURE GRANULOCYTES ABSOLUTE 0.05 10/3/uL (0.0-0.11); LYMPHOCYTES 16.7 %; LYMPHOCYTES ABSOLUTE 1.47 10/3/uL (0.67-4.30); MEAN CORPUS HGB CONC 31.8 g/dL (32.0-36.0); MEAN CORPUSCULAR HEMOGLOB 27.2 pg (26.0-34.0); MEAN CORPUSCULAR VOLUME 85.7 fL (80-100); MONOCYTES 8.3 %; MONOCYTES ABSOLUTE 0.73 10/3/uL (0.21-1.20); NEUTROPHILS 69.2 %; NEUTROPHILS ABSOLUTE 6.08 10/3/uL (2.02-8.40); PLATELET COUNT 446 10/3/uL (150-400); RBC DISTRIBUTION WIDTH 18.3 % (12.0-16.0); RED CELL COUNT 3.01 10/6/uL (4.0-5.6); WHITE BLOOD CELLS 8.8 10/3/uL (4.5-10.5)
[2016-12-29 07:17] LABS: MANUAL DIFF NO %
[2016-12-29] MEDS ORDERED: PCET PO (11:29)
[2016-12-29] MEDS ORDERED: FLECAINIDE50 MG PO (11:30)
[2016-12-29] MEDS ORDERED: ELIQUIS 5 MG TAB5 MG PO (11:30)
[2016-12-29] MEDS ORDERED: LOP25 PO (11:30)
== END 2016-12-29 15:40 | disposition home health service (06) | DRG 330 ==
LOC: ER 13:23 → 5SO 17:36 → 6NO 12-18 15:32 → SDC/OF 12-21 18:13 → 5SO 12-21 19:29
PROVIDERS: Emergency Medicine; Internal Medicine Cardiovascular Disease; Internal Medicine Gastroenterology; Nurse Practitioner Acute Care; Specialist; Surgery
PROC: 0UT10ZZ Resection of Left Ovary, Open Approach (ICD-10-PCS; 2016-12-21)
PROC: 0UT70ZZ Resection of Bilateral Fallopian Tubes, Open Approach (ICD-10-PCS; 2016-12-21)
PROC: 0DJD8ZZ Inspection of Lower Intestinal Tract, Via Natural or Artificial Opening Endoscopic (ICD-10-PCS; 2016-12-21)
PROC: 0DBN0ZZ Excision of Sigmoid Colon, Open Approach (ICD-10-PCS; principal; 2016-12-21 14:00)
DX: K57.20 Diverticulitis of large intestine with perforation and abscess without bleeding (principal); K56.69 Other intestinal obstruction; I48.2 Chronic atrial fibrillation; E11.9 Type 2 diabetes mellitus without complications; I10 Essential (primary) hypertension; D64.9 Anemia, unspecified; E78.5 Hyperlipidemia, unspecified; F17.210 Nicotine dependence, cigarettes, uncomplicated; Z79.82 Long term (current) use of aspirin; Z79.899 Other long term (current) drug therapy; Z90.49 Acquired absence of other specified parts of digestive tract; Z90.710 Acquired absence of both cervix and uterus; Z98.890 Other specified postprocedural states; Z86.010 Personal history of colon polyps; Z79.84 Long term (current) use of oral hypoglycemic drugs
CPT/HCPCS: 36415; 74177; 80048; 80053; 81001; 82248; 82962; 83036; 83690; 83735; 84134; 84439; 84443; 85025; 85610; 86850; 86900; 86901; 87015; 87040; 87070; 87075; 87077; 87102; 87106; 87116; 87186; 87205; 88305; 88307; 93005; 93306; 96374; 96375; 99285; A9270-GY; C9113; J1170; J2248; J2250; J2370; J2405; J2543; J2550; J2710; J2795; J3010; J3475; P9045; Q9967